=== PATIENT | female | born 1970 | race Caucasian/White ===

== ENCOUNTER 2017-11-23 14:23 | Emergency (ER) | payer MEDICAID, OTHER ==
[~2017-11-23] VITALS: Ht 160 cm; Wt 86.0 kg
[2017-11-23] MEDS ORDERED: KETOROLAC TROMETHAMINE 60 MG/2 ML VIAL IM ONE (16:30)
[2017-11-23 17:46] VITALS: BP 100/68
== END 2017-11-23 18:06 | disposition home or self-care (01) ==
LOC: EMS 14:24
DX: M25.561 Pain in right knee (principal); M25.461 Effusion, right knee; I10 Essential (primary) hypertension; Z98.51 Tubal ligation status
CPT/HCPCS: 29505; 73564; 96372; 99284; J1885